=== PATIENT | male | born 1960 | race Caucasian/White ===

== ENCOUNTER 2018-10-25 10:57 | Emergency (ER) | payer OTHER ==
[2018-10-25] MEDS ORDERED: HYDROCODONE/APAP 5/325 TAB PO ONE (11:19)
[2018-10-25] MEDS ORDERED: KETOROLAC 30 MG/1 ML SDV IVP ONE (11:19)
[2018-10-25] MEDS ORDERED: NS 1,000 ML IV ONE (11:19)
[2018-10-25] MEDS ORDERED: PROMETHAZINE HCL 25 MG/ML INJ IVP ONE (11:20)
--- NOTE | 2018-10-25 11:20 | EDPHY ---
H & P Stated Complaint: Left flank/abd pain Time Seen by Provider: 10/25/18 11:15 HPI/ROS: HPI: This is a 58-year-old male who presents with Chief Complaint: Left flank, abdominal pain Location: Left mid flank Quality: Deep Pain Duration: 2 and 0.5 hr prior to arrival Signs and Symptoms: no fever, no nausea, no vomiting, no hematemesis, no blood in stool, no abdominal bloating, no diarrhea, no back pain, no urinary symptoms , no testicular/groin pain, no indigestion, no chest pain, no shortness of breath, no rash Timing: Acute Severity: 03/19 Context: Patient has a history of kidney stones in his 20s presents with sudden onset of left mid flank pain that is described as deep in nature and nonradiating. He reports that it feels similar to when he had a kidney stone in his 20s. He is at work when this occurred. He denies any nausea, vomiting, fever, diarrhea, urinary symptoms, blood in urine, testicular groin pain. Ate and drank breakfast without difficulty this morning. Has daily bowel movements. Modifying Factors: None Comment: ROS: A comprehensive 10 system review of systems is otherwise negative aside from elements mentioned in the history of present illness. 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 Nonsmoker. Family history noncontributory. CONSTITUTIONAL: Uncomfortable appearing middle-aged white male, nontoxic, awake and alert, no obvious distress HEENT: Atraumatic and normocephalic, PERRL, EOMI. Wears glasses. Nares patent ; no rhinorrhea; no nasal mucosal edema. Tympanic membranes clear. Oropharynx clear, no exudate and moist pink mucosa. Airway patent. No lymphadenopathy. No meningismus. Cardiovascular: Normal S1/S2, regular rate, regular rhythm, without murmur rub or gallop. PULMONARY/CHEST: Symmetrical and nontender. Clear to auscultation bilaterally. Good air movement. No accessory muscle usage. ABDOMEN: Soft, protuberant, nondistended, nontender, no rebound, no guarding, no peritoneal signs, no masses or organomegaly. Left CVAT. EXTREMITIES: 2/2 pulses, strength 5/5, no deformities, no clubbing, no cyanosis or edema. NEUROLOGICAL: no focal neuro deficits. GCS 15. SKIN: Warm and dry, no erythema. no rash. Good capillary refill. Source: Patient Exam Limitations: No limitations - Personal History Current Tetanus/Diphtheria Vaccine: Yes - Medical/Surgical History Hx Asthma: No Hx Chronic Respiratory Disease: No Hx Diabetes: No Hx Cardiac Disease: Yes Hx Renal Disease: No Hx Cirrhosis: No Hx Alcoholism: No Other PMH: kidney stones, cardiac stent LAD 2005, - Social History Smoking Status: Never smoked Constitutional: Initial Vital Signs Temperature (C) 36.5 C 10/25/18 11:03 Heart Rate 70 10/25/18 11:03 Respiratory Rate 18 10/25/18 11:03 Blood Pressure 190/114 H 10/25/18 11:03 O2 Sat (%) 94 10/25/18 11:03 O2 Delivery Mode Room Air Allergies/Adverse Reactions: No Known Allergies Allergy (Unverified 10/25/18 11:06) Home Medications: Medication Instructions Recorded AMLODIPINE BESYLATE/BENAZEPRIL 06/26/10 Lipitor 10 mg 06/26/10 METOPROLOL SUCCINATE 06/26/10 Plavix 06/26/10 oxyCODONE/APAP 5/325 [Percocet 1 tab PO Q6 #15 tab 06/26/10 5/325] HYDROmorphone HCL [Dilaudid 2 mg 2 mg PO Q4-6PRN PRN #12 tab 10/25/18 (*)] Ondansetron Odt [Zofran Odt 4 mg 4 mg PO Q4 PRN #12 tab 10/25/18 (*)] Tamsulosin HCl [Flomax 0.4 MG (*)] 0.4 mg PO DAILY #10 cap 10/25/18 Medical Decision Making - Diagnostics Imaging Results: Imaging Impressions Abdomen/Pelvis CT 10/25/18 11:20 Impression: 1. 6.5 mm calculus in the mid left ureter with mild left hydronephrosis. 2. Other chronic findings as above. Results called and discussed with Andria Schneider on 10/25/2018, 12:25. Attention: This CT examination is specifically designed to evaluate patients who are clinically suspected of having acute obstructive uropathy. This examination does not use radiographic contrast, and as such, provides only a limited evaluation of the abdomen, pelvis and retroperitoneum. If there is further clinical suspicion for pathological conditions other than obstructive uropathy, a complete CT evaluation of the abdomen and pelvis utilizing intravenous, oral, and rectal contrast should be considered. ED Course/Re-evaluation: Vital signs reviewed and show elevated blood pressure upon arrival. Suspect related to pain. IV access, i-STAT, laboratory studies, urinalysis, CT abdomen and pelvis without contrast ordered Given 2 L normal saline, IV Toradol 30 mg, Glenvil, IV promethazine 12.5 mg 1125: Creatinine 1.0; okay for CT. H&H stable. No electrolyte imbalance. WBC 9 K 1224: Called By radiologist, Dr. Steele, who reports that CT abdomen and pelvis scan shows mid ureter 6.5 mm stone with mild hydronephrosis Given Flomax and strainer. 1235: Offered patient admission and he politely declined. Wishes to go home and try to pass the stone on his own. Given a urology referral with antiemetics , Flomax, pain medication. This patient was seen under the supervision of my secondary supervising physician. I evaluated care for this patient with attending. Discussed this patient with Dr. Barron. Differential Diagnosis: Flank pain including but not limited to musculoskeletal causes, kidney stone, pyelonephritis, shingles, and intra-abdominal causes such as diverticulitis and appendicitis. - Data Points Laboratory Results: Laboratory Results 10/25/18 11:15 10/25/18 11:15 10/25/18 10/25/18 10/25/18 12:40 11:21 11:15 WBC RBC Hgb POC Hgb 17.7 gm/dL H gm/dL (13.7-17.5) Hct POC Hct 52 % H % (40-51) MCV MCH MCHC RDW Plt Count MPV Neut % (Auto) Lymph % (Auto) [place] % (Auto) Eos % (Auto) Baso % (Auto) Nucleat RBC Rel Count Absolute Neuts (auto) Absolute Lymphs (auto) Absolute Monos (auto) Absolute Eos (auto) Absolute Basos (auto) Absolute Nucleated RBC Immature Gran % Immature Gran # POC Sodium 144 mEq/L mEq/L (135-145) Sodium 142 mEq/L mEq/L (135-145) POC Potassium 3.7 mEq/L mEq/L (3.3-5.0) Potassium 4.2 mEq/L mEq/L (3.5-5.2) POC Chloride 108 mEq/L mEq/L (97-110) Chloride 111 mEq/L H mEq/L (97-110) Carbon Dioxide 20 mEq/l L mEq/l (22-31) POC Total CO2 22 mEq/L mEq/L (22-31) Anion Gap 11 mEq/L mEq/L (6-14) POC BUN 15 mg/dL mg/dL (7-23) BUN 15 mg/dL mg/dL (7-23) Creatinine 1.0 mg/dL mg/dL (0.7-1.3) POC Creatinine 1.0 mg/dL mg/dL (0.7-1.3) Estimated GFR > 60 Glucose 108 mg/dL H mg/dL (70-100) POC Glucose 110 mg/dL H mg/dL (70-100) Calcium 9.8 mg/dL mg/dL (8.5-10.4) Urine Color PALE YELLOW Urine Appearance CLEAR Urine pH 7.0 (5.0-7.5) Ur Specific [place] 1.008 (1.002-1.030) Urine Protein NEGATIVE (NEGATIVE) Urine Ketones NEGATIVE (NEGATIVE) Urine Blood 3+ H (NEGATIVE) Urine Nitrate NEGATIVE (NEGATIVE) Urine Bilirubin NEGATIVE (NEGATIVE) Urine Urobilinogen NEGATIVE EU EU (0.2-1.0) Ur Leukocyte Esterase NEGATIVE (NEGATIVE) Urine RBC 50-182 /hpf H /hpf (0-3) Urine WBC 1-3 /hpf /hpf (0-3) Ur Epithelial Cells NONE SEEN /lpf /lpf (NONE-1+) Urine Bacteria TRACE /hpf H /hpf (NONE SEEN) Urine Mucus TRACE /lpf /lpf (NONE-1+) Urine Glucose NEGATIVE (NEGATIVE) 10/25/18 11:15 WBC 9.75 10^3/uL H 10^3/uL (3.80-9.50) RBC 6.35 10^6/uL 10^6/uL (4.40-6.38) Hgb 17.6 g/dL H g/dL (13.7-17.5) POC Hgb Hct 52.6 % H % (40.0-51.0) POC Hct MCV 82.8 fL fL (81.5-99.8) MCH 27.7 pg L pg (27.9-34.1) MCHC 33.5 g/dL g/dL (32.4-36.7) RDW 13.3 % % (11.5-15.2) Plt Count 279 10^3/uL 10^3/uL (150-400) MPV 10.1 fL fL (8.7-11.7) Neut % (Auto) 55.3 % % (39.3-74.2) Lymph % (Auto) 31.7 % % (15.0-45.0) Powell % (Auto) 11.0 % % (4.5-13.0) Eos % (Auto) 1.2 % % (0.6-7.6) Baso % (Auto) 0.6 % % (0.3-1.7) Nucleat RBC Rel Count 0.0 % % (0.0-0.2) Absolute Neuts (auto) 5.39 10^3/uL 10^3/uL (1.70-6.50) Absolute Lymphs (auto) 3.09 10^3/uL H 10^3/uL (1.00-3.00) Absolute Monos (auto) 1.07 10^3/uL H 10^3/uL (0.30-0.80) Absolute Eos (auto) 0.12 10^3/uL 10^3/uL (0.03-0.40) Absolute Basos (auto) 0.06 10^3/uL 10^3/uL (0.02-0.10) Absolute Nucleated RBC 0.00 10^3/uL 10^3/uL (0-0.01) Immature Gran % 0.2 % % (0.0-1.1) Immature Gran # 0.02 10^3/uL 10^3/uL (0.00-0.10) POC Sodium Sodium POC Potassium Potassium POC Chloride Chloride Carbon Dioxide POC Total CO2 Anion Gap POC BUN BUN Creatinine POC Creatinine Estimated GFR Glucose POC Glucose Calcium Urine Color Urine Appearance Urine pH Ur Specific [place] Urine Protein Urine Ketones Urine Blood Urine Nitrate Urine Bilirubin Urine Urobilinogen Ur Leukocyte Esterase Urine RBC Urine WBC Ur Epithelial Cells Urine Bacteria Urine Mucus Urine Glucose Medications Given: Discontinued Medications Hydrocodone Bitart/Acetaminophen ([place] 5/325) 1 tab PO EDNOW ONE Stop: 10/25/18 11:20 Last Admin: 02/15/19 11:30 Dose: 1 tab Sodium Chloride (Ns) 1,000 mls @ 0 mls/hr IV ONCE ONE; Wide Open PRN Reason: Protocol Stop: 10/25/18 11:20 Last Admin: 10/25/18 11:29 Dose: 1,000 mls Ketorolac Tromethamine (Toradol) 30 mg IVP EDNOW ONE Stop: 10/25/18 11:20 Last Admin: 10/25/18 11:30 Dose: 30 mg Promethazine HCl (Phenergan) 12.5 mg IVP ONCE ONE Stop: 10/25/18 11:21 Last Admin: 10/25/18 11:30 Dose: 12.5 mg Tamsulosin HCl (Flomax) 0.4 mg PO EDNOW ONE Stop: 10/25/18 12:25 Last Admin: 10/25/18 12:38 Dose: 0.4 mg Point of Care Test Results: Chemistry 10/25/18 11:21 POC Sodium 144 mEq/L mEq/L (135-145) POC Potassium 3.7 mEq/L mEq/L (3.3-5.0) POC Chloride 108 mEq/L mEq/L (97-110) POC Total CO2 22 mEq/L mEq/L (22-31) POC BUN 15 mg/dL mg/dL (7-23) POC Creatinine 1.0 mg/dL mg/dL (0.7-1.3) POC Glucose 110 mg/dL H mg/dL (70-100) ISTAT H&H 10/25/18 11:21 POC Hgb 17.7 gm/dL H gm/dL (13.7-17.5) POC Hct 52 % H % (40-51) Departure - Departure Disposition: Home, Routine, Self-Care Clinical Impression: Left ureteral calculus, Renal colic on left side Condition: Good Instructions: Renal Colic (ED), Ureteral Stones (ED) Additional Instructions: Consume a minimum of 8-10 glasses of water or electrolyte fluid replacement drinks that include Gatorade, Powerade, Pedialyte. Take Flomax daily until the stone passes. Strain all of your urine until the stone passes. Take Zofran every 4-6 hours as needed for nausea, vomiting. Take Tylenol 650 mg every 4 hr and/or ibuprofen 600 mg with food every 6-8 hr as needed for pain. Take Dilaudid every 4-6 hours as needed for severe/breakthrough pain. If stone does not pass within the next 72 hr, follow-up with Urology. Return to the ER immediately if you experience new, continued or worsening abdominal pain, fevers/chills, inability to tolerate oral intake, new pain, or any other symptoms that concern you. Follow-Up: Please follow-up as noted above. Follow-up sooner if your condition worsens or if you develop any new problems. Call as soon as possible for an appointment. Be clear when you call for an appointment that this is an Emergency Department follow-up. Contact the Emergency Department if you have trouble arranging follow-up care. Our referrals are not based on your insurance network. When time allows, contact your insurance carrier to verify the referral physician is in your plan. If not, get a referral for an in-network control operator. Referrals: Jona Willard MD [Medical Doctor] - As per Instructions Prescriptions: HYDROmorphone HCL [Dilaudid 2 mg (*)] 2 mg PO Q4-6PRN PRN #12 tab PRN Reason: Pain, Severe Ondansetron Odt [Zofran Odt 4 mg (*)] 4 mg PO Q4 PRN #12 tab PRN Reason: Nausea/Vomiting, Use 1st Tamsulosin HCl [Flomax 0.4 MG (*)] 0.4 mg PO DAILY #10 cap
[2018-10-25 11:26] LABS: PLATELET COUNT 279 10^3/uL (150-400)
[2018-10-25] MEDS ORDERED: TAMSULOSIN HCL 0.4 MG CAP PO ONE (12:24)
[2018-10-25 13:06] VITALS: BP 153/102
== END 2018-10-25 13:05 | disposition home or self-care (01) ==
DX: N13.2 Hydronephrosis with renal and ureteral calculous obstruction (principal); N23 Unspecified renal colic; E86.9 Volume depletion, unspecified; Z95.5 Presence of coronary angioplasty implant and graft
CPT/HCPCS: 82435-PO; 82565-PO; 82947-PO; 84132-PO; 84295-PO; 84520-PO; 85014-ER; 96374; J1885; J2550